=== PATIENT | male | born 1955 | race Caucasian/White ===

== ENCOUNTER 2017-12-02 19:05 | Emergency (ER) | payer OTHER ==
[~2017-12-02] VITALS: Ht 172.7 cm; Wt 65.0 kg
[~2017-12-02 19:05] MED LIST: BENAZEPRIL10 M1 PO; CO Q-10200 MG PO; LIPITOR40 MG PO; LOTREL 5/101 CAP OR; OMEGA-3 KRILL500 MG PO; PREVACID30 M1 OR; PRILOSEC20 MG PO; SAW PALMETTO1 CAP PO; SIMVASTATIN80 MG OR
[2017-12-02 19:45] LABS: HEMATOCRIT 44.4 % (39.0-50.0); HEMOGLOBIN 15.6 g/dl (14.0-18.0); IMMATURE GRANULOCYTES 0.5 % (0.0-1.0); MEAN CELL VOLUME 92.1 fL CALC (80.0-100.0); MEAN CORPUSCULAR HGB 32.4 pG CALC (26.0-32.0); MEAN CORPUSCULAR HGB CONC 35.1 g/L CALC (32.0-36.0); NEUT# 17.49 thou/uL (1.82-7.42); RED BLOOD COUNT 4.82 mill/uL (4.70-6.10); RED CELL DISTRI WIDTH 11.7 % (11.5-15.5)
[2017-12-02 19:59] LABS: ALBUMIN 4.8 g/dL (3.2-5.0); ALKALINE PHOSPHATASE 117 u/l (38-126); AMYLASE 125 u/l (30-110); ANION GAP 17 (6-22 (CALC)); BILIRUBIN, TOTAL 0.8 mg/dL (0.0-1.4); BUN 19 mg/dL (9-20); BUN/CREATININE RATIO 19 (12-20 (CALC)); CARBON DIOXIDE 24 mmol/l (22-30); CHLORIDE 99 mmol/l (95-108); CREATININE 1.1 mg/dL (0.7-1.3); GFR > 60 ML/MIN (>=60 (CALC)); GFR FOR AFR.AMER. > 60 ML/MIN (>=60 (CALC)); LIPASE 177 u/l (23-300); POTASSIUM 4.2 mmol/l (3.5-5.1); SGOT/AST 33 u/l (17-59); SGPT/ALT 47 u/l (21-72); SODIUM 135 mmol/l (137-146); TOTAL PROTEIN 8.2 g/dL (6.3-8.2)
[2017-12-02 21:09] LABS: URINE BILIRUBIN - DIPSTICK NEGATIVE (NEGATIVE); URINE BLOOD DIPSTICK NEGATIVE (NEGATIVE); URINE COLOR YELLOW; URINE GLUCOSE - DIPSTICK NEGATIVE (NEGATIVE); URINE KETONE 40 mg/dL (NEGATIVE); URINE LEUK ESTERASE NEGATIVE (NEGATIVE); URINE NITRITE - DIPSTICK NEGATIVE (Negative); URINE PROTEIN - DIPSTICK NEGATIVE (NEG-TRACE); URINE SPECIFIC GRAVITY <=1.005; URINE UROBILINOGEN - DIPSTICK 0.2 E.U./dL (0.2)
[2017-12-02 21:10] LABS: URINE CLARITY CLEAR
[2017-12-02] MEDS ORDERED: CIPROFLOXACN500 MG PO (22:12)
[2017-12-02] MEDS ORDERED: LORTAB 1010 MG PO (22:12)
[2017-12-02] MEDS ORDERED: METRONIDAZOL500 MG PO (22:12)
[2017-12-02 22:20] VITALS: BP 102/66
== END 2017-12-02 22:26 | disposition home or self-care (01) | DRG 392 ==
LOC: ED 19:05
PROVIDERS: Emergency Medicine
DX: R10.32 Left lower quadrant pain (principal); K57.32 Diverticulitis of large intestine without perforation or abscess without bleeding; K44.9 Diaphragmatic hernia without obstruction or gangrene; K42.9 Umbilical hernia without obstruction or gangrene; R50.9 Fever, unspecified; R14.0 Abdominal distension (gaseous)
CPT/HCPCS: Q9967

== ENCOUNTER → 2018-09-05 | Outpatient (REF) | payer OTHER ==
[~2018-09-05] MED LIST changes: +CIPROFLOXACN500 MG PO; +LORTAB 1010 MG PO; +METRONIDAZOL500 MG PO
== END | disposition home or self-care (01) | DRG 192 ==
LOC: CT 08:44
PROVIDERS: ATTEND Internal Medicine Pulmonary Disease
DX: J44.9 Chronic obstructive pulmonary disease, unspecified (principal); R91.1 Solitary pulmonary nodule; E78.00 Pure hypercholesterolemia, unspecified; K21.9 Gastro-esophageal reflux disease without esophagitis; G47.10 Hypersomnia, unspecified

== ENCOUNTER 2018-10-24 07:37 | Emergency (ER) | payer OTHER ==
[~2018-10-24] VITALS: Ht 172.7 cm; Wt 70.0 kg
[2018-10-24 08:36] LABS: HEMATOCRIT 44.6 % (39.0-50.0); HEMOGLOBIN 15.4 g/dl (14.0-18.0); IMMATURE GRANULOCYTES 0.3 % (0.0-5.0); MEAN CELL VOLUME 93.1 fL CALC (80.0-100.0); MEAN CORPUSCULAR HGB 32.2 pG CALC (26.0-32.0); MEAN CORPUSCULAR HGB CONC 34.5 g/L CALC (32.0-36.0); NEUT# 4.31 thou/uL (1.82-7.42); RED BLOOD COUNT 4.79 mill/uL (4.70-6.10); RED CELL DISTRI WIDTH 11.9 % (11.5-15.5)
[2018-10-24] MEDS ORDERED: SAW PALMETTO1 CAP PO (08:36)
[2018-10-24 08:59] LABS: ALBUMIN 4.8 g/dL (3.2-5.0); ALKALINE PHOSPHATASE 122 u/l (38-126); ANION GAP 16 (6-22 (CALC)); BILIRUBIN, TOTAL 0.5 mg/dL (0.0-1.4); BUN 25 mg/dL (9-20); BUN/CREATININE RATIO 23 (12-20 (CALC)); CARBON DIOXIDE 23 mmol/l (22-30); CHLORIDE 106 mmol/l (95-108); CREATININE 1.1 mg/dL (0.7-1.3); GFR > 60 ML/MIN (>=60 (CALC)); GFR FOR AFR.AMER. > 60 ML/MIN (>=60 (CALC)); POTASSIUM 4.3 mmol/l (3.5-5.1); SGOT/AST 33 u/l (17-59); SODIUM 140 mmol/l (137-146); TOTAL PROTEIN 7.8 g/dL (6.3-8.2)
[2018-10-24] MEDS ORDERED: TORADOL PO (10:17)
[2018-10-24] MEDS ORDERED: MEDDOSEPAK PO (10:17)
[2018-10-24 10:35] VITALS: BP 128/87
== END 2018-10-24 10:43 | disposition home or self-care (01) | DRG 195 ==
LOC: ED 07:37
PROVIDERS: Emergency Medicine
DX: R09.1 Pleurisy (principal)
CPT/HCPCS: Q9967

== ENCOUNTER 2022-03-03 09:22 | Day surgery (SDC) | payer OTHER ==
[~2022-03-03] VITALS: Ht 172.7 cm; Wt 80.7 kg
[~2022-03-03 09:22] MED LIST changes: +B121000 MC1 PO; +D31000 UNIT PO; +MEDDOSEPAK PO; +TORADOL PO
[2022-03-03] MEDS ORDERED: PERCOCET 5/321 COMBO PO (10:56)
[2022-03-03 12:10] VITALS: BP 140/88
== END 2022-03-03 12:08 | disposition home or self-care (01) | DRG 355 ==
LOC: ORM 09:22
PROVIDERS: ATTEND Surgery
PROC: 0WQF0ZZ Repair Abdominal Wall, Open Approach (ICD-10-PCS; principal; 2022-03-03)
DX: K42.9 Umbilical hernia without obstruction or gangrene (principal)
CPT/HCPCS: J0131

== ENCOUNTER 2023-08-05 07:19 | Day surgery (SDC) | payer MEDICARE ==
[~2023-08-05] VITALS: Ht 172.7 cm; Wt 81.6 kg
[~2023-08-05 07:19] MED LIST changes: +PERCOCET 5/321 COMBO PO
[2023-08-05] MEDS ORDERED: LACTATED RINGER'S 1,000 ML IV ONE (07:23)
[2023-08-05] MEDS ORDERED: FAMOTIDINE 10MG/ML 2ML SDV IV ONE (07:23)
[2023-08-05 09:33] VITALS: BP 116/81
[2023-08-05] MEDS ORDERED: GLYCOPYRROLATE 0.2 MG/ML IV ONE (14:42)
[2023-08-05] MEDS ORDERED: LIDOCAINE HCL 2% 2ML SDV IV ONE (14:42)
[2023-08-05] MEDS ORDERED: PROPOFOL 200 MG/20 ML VIAL IV ONE (14:42)
== END 2023-08-05 09:42 | disposition home or self-care (01) ==
LOC: ORM 07:19 → ENDO 09:30 → ORM 09:42
PROVIDERS: ATTEND Surgery
PROC: 0DBN8ZX Excision of Sigmoid Colon, Via Natural or Artificial Opening Endoscopic, Diagnostic (ICD-10-PCS; principal; 2023-08-05)
DX: Z12.11 Encounter for screening for malignant neoplasm of colon (principal); K63.5 Polyp of colon; K64.8 Other hemorrhoids